=== PATIENT | female | born 1970 | race Caucasian/White ===

== ENCOUNTER → 2019-03-15 | Outpatient (CLI) | payer MEDICARE, OTHER ==
[2019-03-16 14:05] LABS: Candida species (DNA Probe) Positive (NEGATIVE); G. vaginalis (DNA Probe) Positive (NEGATIVE); T. vaginalis (DNA Probe) Negative (NEGATIVE)
== END ==
LOC: LAB SHORT 15:40 → LAB 15:40
PROVIDERS: Nurse Practitioner Family
DX: N76.0 Acute vaginitis (principal)
CPT/HCPCS: 87070; 87205; 87480; 87510; 87660

== ENCOUNTER 2020-01-20 06:19 | Day surgery (SDC) | payer MEDICARE ==
[~2020-01-20] VITALS: Ht 170.2 cm; Wt 117.6 kg
--- NOTE | 2020-01-20 07:17 | NUR ---
01/20/20 0717 Elizabeth Amos 2 IV ATTEMPTS BY [facility], 1ST IN L FOREARM INFILTRATED, 2ND IN L FOREARM WAS SUCCESSFUL
[2020-01-20] MEDS ORDERED: TOPI100 PO (07:18)
[2020-01-20] MEDS ORDERED: VENL75ER PO (07:18)
[2020-01-20] MEDS ORDERED: SUMA25 PO (07:19)
--- NOTE | 2020-01-20 07:59 | NUR ---
01/20/20 0759 Jimmie Young 1 MG EPI ADDED TO THE FIRST LR BAG FOR IRRIGATION.
--- NOTE | 2020-01-20 09:13 | NUR ---
01/20/20 0912 Tiffanie Santos V PT RESTING IN RECLINER, EYES CLOSED, OPERATIVE LIMB ICED AND ELEVATED, S/O AT CHAIR-SIDE. PT REPORTS PAIN FOR WHICH SHE HAS BEEN MEDICATED FOR.
== END 2020-01-20 11:15 | disposition home or self-care (01) ==
LOC: ORSCSDS 06:19
PROVIDERS: Orthopaedic Surgery
PROC: 0SBD4ZZ Excision of Left Knee Joint, Percutaneous Endoscopic Approach (ICD-10-PCS; principal; 2020-01-20 07:30)
DX: S83.282A Other tear of lateral meniscus, current injury, left knee, initial encounter (principal); E11.9 Type 2 diabetes mellitus without complications; E66.01 Morbid (severe) obesity due to excess calories; Z68.41 Body mass index [BMI] 40.0-44.9, adult; Z79.899 Other long term (current) drug therapy; Z79.82 Long term (current) use of aspirin
CPT/HCPCS: 82947; J0171; J0690; J1100; J2250; J2405; J2704; J3010; J7120

== ENCOUNTER → 2020-04-23 | Outpatient (CLI) | payer MEDICARE ==
[~2020-04-23] MED LIST: SUMA25 PO; TOPI100 PO; VENL75ER PO
== END | disposition home or self-care (01) ==
LOC: LAB 13:20 → LAB SHORT 13:20
DX: R35.0 Frequency of micturition (principal)
CPT/HCPCS: 87086

== ENCOUNTER → 2020-06-15 | Outpatient (CLI) | payer MEDICARE ==
[~2020-06-15] MED LIST changes: +Colace250 MG PO; +HYDR1TAB94 PO; +HYDROCODONE-AC1 EAC7 PO; +IMITREX100 MG; +METFORMIN HCL500 M3 PO; +TOPI100; +VENLAFAXINE HC225 MG
[2020-06-15 12:32] LABS: Source, Urine Clean Catch
[2020-06-15 13:35] LABS: Appearance, Urine Clear (Clear); Bilirubin, Urine Neg (Neg); Blood, Urine 5+ (Neg); Color, Urine Yellow (P-Yellow); Glucose Qualitative, Urine Neg (Neg); Ketones, Urine Neg (Neg); Leukocyte Esterase, Urine Neg (Neg); Nitrite, Urine Neg (Neg); Protein, Urine Neg (Neg); Specific Gravity, Urine 1.025 (1.003-1.022); Urobilinogen, Urine NORM (Normal)
[2020-06-15 14:10] LABS: Amorphous Light (0-Heavy); Bacteria Few /hpf; Mucus Light (0-Heavy); Squamous Epithelial Cells Few /hpf (Few); White Blood Cells, Urine 0-2 /hpf (0-5)
[2020-06-15 14:11] LABS: Calcium Oxalate Crystals Mod /hpf
== END | disposition home or self-care (01) ==
LOC: OLS 12:31 → LAB SHORT 12:31
PROVIDERS: Nurse Practitioner Family
DX: R10.9 Unspecified abdominal pain (principal); R30.0 Dysuria
CPT/HCPCS: 81001

== ENCOUNTER 2020-06-17 04:20 | Emergency (ER) | payer MEDICARE ==
[~2020-06-17] VITALS: Ht 172.7 cm; Wt 107.0 kg
[~2020-06-17 04:20] MED LIST changes: -Colace250 MG PO; -HYDR1TAB94 PO; -HYDROCODONE-AC1 EAC7 PO; -IMITREX100 MG; -METFORMIN HCL500 M3 PO; -TOPI100; -VENLAFAXINE HC225 MG
[2020-06-17] MEDS ORDERED: METFORMIN HCL500 M3 PO (04:35)
[2020-06-17] MEDS ORDERED: TOPI100 (04:35)
[2020-06-17] MEDS ORDERED: VENLAFAXINE HC225 MG (04:35)
[2020-06-17] MEDS ORDERED: HYDROCODONE-AC1 EAC7 PO (04:35)
[2020-06-17] MEDS ORDERED: IMITREX100 MG (04:35)
[2020-06-17 04:58] LABS: Source, Urine Clean Catch
[2020-06-17 05:01] LABS: Appearance, Urine Clear (Clear); Bilirubin, Urine Neg (Neg); Blood, Urine 5+ (Neg); Color, Urine Yellow (P-Yellow); Glucose Qualitative, Urine Neg (Neg); Ketones, Urine 1+ (Neg); Leukocyte Esterase, Urine 1+ (Neg); Nitrite, Urine Neg (Neg); Protein, Urine 2+ (Neg); Urobilinogen, Urine NORM (Normal)
[2020-06-17 05:10] LABS: White Blood Cells, Urine 0-2 /hpf (0-5)
[2020-06-17 05:11] LABS: Bacteria Many /hpf; Calcium Oxalate Crystals Many /hpf; Squamous Epithelial Cells Mod /hpf (Few)
[2020-06-17 05:19] LABS: Alanine Aminotransfer (ALT/SGP 21 U/L (12-78); Albumin, Blood 3.9 g/dL (3.4-5.0); Alk Phos 88 U/L (50-136); Anion Gap 7 mmol/L (6-16); Aspartate Aminotrans (AST/SGOT 24 U/L (12-37); Bilirubin, Total 0.3 mg/dL (0.1-1.0); Blood Urea Nitrogen 10 mg/dL (8-24); Bun/Creatinine Ratio 12.5 (12.0-20.0); CO2, Blood 24 mmol/L (21-32); Calcium, Blood 9.3 mg/dL (8.5-10.1); Chloride, Blood 110 mmol/L (98-108); Globulin, Blood 3.8 g/dL (2.2-4.0); Glomerular Filtration Rate >60 (60-); Glucose, Blood 187 mg/dL (70-99); Potassium, Blood 4.3 mmol/L (3.5-5.5); Sodium, Blood 141 mmol/L (136-145); Total Protein, Blood 7.7 g/dL (6.4-8.2)
[2020-06-17 05:48] LABS: BASOPHILS ABSOLUTE AUTO 0.03 K/mm3 (0.00-0.23); BASOPHILS PERCENT AUTO 0 % (0-2); EOSINOPHILS ABSOLUTE AUTO 0.08 K/mm3 (0.00-0.68); EOSINOPHILS PERCENT AUTO 1 % (0-6); Hematocrit 37.1 % (33.0-51.0); Hemoglobin 12.1 g/dL (11.5-16.0); IMMATURE GRAN ABSOLUTE AUTO 0.02 K/mm3 (0.00-0.10); IMMATURE GRAN PERCENT AUTO 0 % (0-1); LYMPHOCYTES ABSOLUTE AUTO 1.14 K/mm3 (0.84-5.20); LYMPHOCYTES PERCENT AUTO 16 % (21-46); MONOCYTES PERCENT AUTO 4 % (4-13); Mean Corpuscular HGB 28.8 pg (26.0-34.0); Mean Corpuscular HGB Conc 32.6 g/dL (31.5-36.5); Mean Corpuscular Volume 88 fL (80-100); Mean Platelet Volume 10.1 fL (9.1-12.4); NEUTROPHILS ABSOLUTE AUTO 5.73 K/mm3 (1.96-9.15); NEUTROPHILS PERCENT AUTO 79 % (41-73); Platelet Count 191 K/mm3 (150-400); RDW Coefficient Variation 13.7 % (11.7-14.2); RDW Standard Deviation 44.2 fL (35.1-46.3)
[2020-06-17 06:13] LABS: Source, Urine Catheter
[2020-06-17 06:32] LABS: Appearance, Urine Clear (Clear); Bilirubin, Urine Neg (Neg); Blood, Urine 5+ (Neg); Color, Urine Yellow (P-Yellow); Glucose Qualitative, Urine Neg (Neg); Leukocyte Esterase, Urine Neg (Neg); Nitrite, Urine Neg (Neg); Protein, Urine 2+ (Neg); Urobilinogen, Urine NORM (Normal)
[2020-06-17 06:33] LABS: Ketones, Urine 1+ (Neg)
[2020-06-17 06:41] LABS: Bacteria Not Seen /hpf; Squamous Epithelial Cells Few /hpf (Few); White Blood Cells, Urine Not Seen /hpf (0-5)
[2020-06-17] MEDS ORDERED: HYDR1TAB94 PO (07:05)
[2020-06-17] MEDS ORDERED: Colace250 MG PO (07:05)
== END 2020-06-17 07:16 | disposition home or self-care (01) ==
LOC: ER 04:20
PROVIDERS: Emergency Medicine
DX: N13.2 Hydronephrosis with renal and ureteral calculous obstruction (principal); Z88.8 Allergy status to other drugs, medicaments and biological substances; Z79.84 Long term (current) use of oral hypoglycemic drugs; Z79.899 Other long term (current) drug therapy; Z87.442 Personal history of urinary calculi
CPT/HCPCS: 36415; 74176; 80053; 81001; 85025; 87086; 96374-59; 96375-59; 99284-25; J1885; J2270; J2405; P9612

== ENCOUNTER 2021-01-14 16:51 | Emergency (ER) | payer MEDICARE ==
[~2021-01-14] VITALS: Ht 175.3 cm; Wt 85.7 kg
[~2021-01-14 16:51] MED LIST changes: +Colace250 MG PO; +HYDR1TAB94 PO; +HYDROCODONE-AC1 EAC7 PO; +IMITREX100 MG; +METFORMIN HCL500 M3 PO; +TOPI100; +VENLAFAXINE HC225 MG
[2021-01-14] MEDS ORDERED: TRAZ50 PO (17:13)
[2021-01-14 22:11] LABS: BASOPHILS ABSOLUTE AUTO 0.02 K/mm3 (0.00-0.23); BASOPHILS PERCENT AUTO 0 % (0-2); EOSINOPHILS ABSOLUTE AUTO 0.04 K/mm3 (0.00-0.68); EOSINOPHILS PERCENT AUTO 1 % (0-6); Hemoglobin 13.8 g/dL (11.5-16.0); IMMATURE GRAN ABSOLUTE AUTO 0.03 K/mm3 (0.00-0.10); IMMATURE GRAN PERCENT AUTO 0 % (0-1); LYMPHOCYTES ABSOLUTE AUTO 1.81 K/mm3 (0.84-5.20); LYMPHOCYTES PERCENT AUTO 22 % (21-46); MONOCYTES PERCENT AUTO 6 % (4-13); Mean Corpuscular HGB 29.5 pg (26.0-34.0); Mean Corpuscular HGB Conc 32.9 g/dL (31.5-36.5); Mean Corpuscular Volume 90 fL (80-100); Mean Platelet Volume 10.1 fL (9.1-12.4); NEUTROPHILS ABSOLUTE AUTO 6.02 K/mm3 (1.96-9.15); NEUTROPHILS PERCENT AUTO 72 % (41-73); Platelet Count 181 K/mm3 (150-400); RDW Coefficient Variation 12.3 % (11.7-14.2); RDW Standard Deviation 40.2 fL (35.1-46.3); Red Blood Cell Count 4.68 M/mm3 (3.80-5.20); White Blood Cell Count 8.42 K/mm3 (4.00-11.30)
[2021-01-14 22:31] LABS: Alanine Aminotransfer (ALT/SGP 34 U/L (12-78); Albumin, Blood 3.8 g/dL (3.4-5.0); Alk Phos 59 U/L (50-136); Anion Gap 6 mmol/L (6-16); Aspartate Aminotrans (AST/SGOT 28 U/L (12-37); Bilirubin, Total 0.4 mg/dL (0.1-1.0); Blood Urea Nitrogen 12 mg/dL (8-24); Bun/Creatinine Ratio 16.1 (12.0-20.0); CO2, Blood 21 mmol/L (21-32); Calcium, Blood 8.6 mg/dL (8.5-10.1); Chloride, Blood 109 mmol/L (98-108); Creatinine, Blood 0.75 mg/dL (0.40-1.00); Glomerular Filtration Rate >60 (60-); Glucose, Blood 110 mg/dL (70-99); Potassium, Blood 3.8 mmol/L (3.5-5.5); Sodium, Blood 136 mmol/L (136-145); Total Protein, Blood 7.8 g/dL (6.4-8.2)
== END 2021-01-14 23:00 | disposition home or self-care (01) ==
LOC: ER 16:51
PROVIDERS: Physician Assistant
DX: G43.809 Other migraine, not intractable, without status migrainosus (principal); E11.9 Type 2 diabetes mellitus without complications; Z88.8 Allergy status to other drugs, medicaments and biological substances; Z79.899 Other long term (current) drug therapy
CPT/HCPCS: 70450; 80053; 85025; 93005; 93010; 96361; 96374; 96375; 99285-25; A9270; J0780; J1200; J7030

== ENCOUNTER 2021-05-26 15:10 | Emergency (ER) | payer MEDICARE ==
[~2021-05-26] VITALS: Ht 172.7 cm; Wt 110.2 kg
[~2021-05-26 15:10] MED LIST changes: +TRAZ50 PO
[2021-05-26] MEDS ORDERED: METF500 PO (16:43)
[2021-05-26] MEDS ORDERED: Percocet 10-321 EACH PO (17:22)
== END 2021-05-26 17:41 | disposition home or self-care (01) ==
LOC: ER 15:10
DX: S43.401A Unspecified sprain of right shoulder joint, initial encounter (principal); S80.02XA Contusion of left knee, initial encounter; E11.9 Type 2 diabetes mellitus without complications; G43.909 Migraine, unspecified, not intractable, without status migrainosus; Z88.8 Allergy status to other drugs, medicaments and biological substances; Z79.899 Other long term (current) drug therapy; Z96.652 Presence of left artificial knee joint; W10.9XXA Fall (on) (from) unspecified stairs and steps, initial encounter
CPT/HCPCS: 73030; 73562-LT; 99283-25; A9270

== ENCOUNTER → 2022-02-11 | Outpatient (CLI) | payer MEDICARE ==
[~2022-02-11] MED LIST changes: +METF500 PO; +Percocet 10-321 EACH PO
[2022-02-15 13:10] LABS: HPV 16 Negative (Negative); HPV 18 Negative (Negative); HPV OTHER HR TYPES Negative (Negative)
== END | disposition home or self-care (01) ==
LOC: LAB 17:16 → LAB SHORT 17:16
PROVIDERS: Nurse Practitioner Family
DX: Z12.4 Encounter for screening for malignant neoplasm of cervix (principal)
CPT/HCPCS: 87624; G0123

== ENCOUNTER → 2022-05-02 | Outpatient (CLI) | payer MEDICARE ==
[2022-05-05 18:37] LABS: Adenovirus F 40/41 Not Detected (NOT DETECT); Astrovirus Not Detected (NOT DETECT); Campylobacter Sp Not Detected (NOT DETECT); Cryptosporidium Not Detected (NOT DETECT); Cyclospora Cayetanensis Not Detected (NOT DETECT); E. Coli O157 Not Detected (NOT DETECT); Entamoeba Histolytica Not Detected (NOT DETECT); Enteroaggregative E. coli-EAEC Not Detected (NOT DETECT); Enteropathogenic E. coli-EPEC Not Detected (NOT DETECT); Enterotoxigenic E. coli-ETEC Not Detected (NOT DETECT); Giardia Lamblia Not Detected (NOT DETECT); Norovirus GI/GII Not Detected (NOT DETECT); Plesiomonas Shigelloides Not Detected (NOT DETECT); Rotavirus A Not Detected (NOT DETECT); Salmonella Sp Not Detected (NOT DETECT); Sapovirus Not Detected (NOT DETECT); Shiga Toxin-prod E. coli-STEC Not Detected (NOT DETECT); Shigella/Enteroin E. coli-EIEC Not Detected (NOT DETECT); Vibrio Cholerae Not Detected (NOT DETECT); Vibrio Sp Not Detected (NOT DETECT); Yersinia Enterocolitica Not Detected (NOT DETECT)
== END | disposition home or self-care (01) ==
LOC: LAB 18:00 → LAB SHORT 18:00
PROVIDERS: Physician Assistant Medical
DX: K52.9 Noninfective gastroenteritis and colitis, unspecified (principal)
CPT/HCPCS: 82653; 83993; 87507

== ENCOUNTER 2022-05-06 09:29 | Day surgery (SDC) | payer MEDICARE ==
[~2022-05-06] VITALS: Ht 172.7 cm; Wt 110.4 kg
--- NOTE | 2022-05-06 10:45 | NUR ---
05/06/22 [place]5 Yesenia Plasencia MONITOR INTACT WITH CONTINUOUS PULSE OXIMETRY AND INTERMITTENT BP.
--- NOTE | 2022-05-06 11:45 | NUR ---
Discharge instructions reviewed with patient. Patient verbalizes understanding. Copy given to patient to take home. Discharged via wheelchair to private car for ride home.
== END 2022-05-06 11:55 | disposition home or self-care (01) ==
LOC: ORSCMMR 09:29 → ORD 11:00 → ORSCMMR 11:55 → ORD 12:00
PROVIDERS: Internal Medicine Gastroenterology
PROC: 0DBL8ZX Excision of Transverse Colon, Via Natural or Artificial Opening Endoscopic, Diagnostic (ICD-10-PCS; principal; 2022-05-06 11:00)
DX: R19.7 Diarrhea, unspecified (principal); Z83.71 Family history of colonic polyps; G47.33 Obstructive sleep apnea (adult) (pediatric); K57.50 Diverticulosis of both small and large intestine without perforation or abscess without bleeding; E11.9 Type 2 diabetes mellitus without complications; K64.8 Other hemorrhoids; Z87.891 Personal history of nicotine dependence; Z79.899 Other long term (current) drug therapy
CPT/HCPCS: 82947; 88305; J2250; J2405; J2704; J7120

== ENCOUNTER → 2022-08-01 | Outpatient (CLI) | payer MEDICARE ==
[2022-08-03 10:33] LABS: Candida species (DNA Probe) Positive (NEGATIVE); G. vaginalis (DNA Probe) Positive (NEGATIVE); T. vaginalis (DNA Probe) Negative (NEGATIVE)
== END | disposition home or self-care (01) ==
LOC: LAB SHORT 15:00
PROVIDERS: Nurse Practitioner
DX: N89.8 Other specified noninflammatory disorders of vagina (principal)
CPT/HCPCS: 87480; 87510; 87660

== ENCOUNTER 2023-04-05 20:16 | Emergency (ER) | payer MEDICARE ==
[~2023-04-05] VITALS: Ht 172.7 cm; Wt 100.7 kg
[2023-04-05] MEDS ORDERED: PROG100 PO (21:12)
[2023-04-05] MEDS ORDERED: ATOR40TA PO (21:12)
[2023-04-05] MEDS ORDERED: HYDHCL25 (21:13)
[2023-04-05] MEDS ORDERED: OZEMPIC0.25 MG/02 SQ (21:14)
[2023-04-05] MEDS ORDERED: IRBESARTAN75 M3 PO (21:15)
[2023-04-05] MEDS ORDERED: VENL150ER PO (21:16)
[2023-04-05 21:23] LABS: BASOPHILS ABSOLUTE AUTO 0.04 K/mm3 (0.00-0.23); BASOPHILS PERCENT AUTO 0 % (0-2); EOSINOPHILS ABSOLUTE AUTO 0.16 K/mm3 (0.00-0.68); EOSINOPHILS PERCENT AUTO 2 % (0-6); Hematocrit 40.5 % (33.0-51.0); Hemoglobin 14.3 g/dL (11.5-16.0); IMMATURE GRAN ABSOLUTE AUTO 0.04 K/mm3 (0.00-0.10); IMMATURE GRAN PERCENT AUTO 0 % (0-1); LYMPHOCYTES ABSOLUTE AUTO 1.44 K/mm3 (0.84-5.20); LYMPHOCYTES PERCENT AUTO 16 % (21-46); MONOCYTES ABSOLUTE AUTO 0.32 K/mm3 (0.16-1.47); MONOCYTES PERCENT AUTO 4 % (4-13); Mean Corpuscular HGB 29.5 pg (26.0-34.0); Mean Corpuscular HGB Conc 35.3 g/dL (31.5-36.5); Mean Corpuscular Volume 84 fL (80-100); NEUTROPHILS ABSOLUTE AUTO 7.08 K/mm3 (1.96-9.15); NEUTROPHILS PERCENT AUTO 78 % (41-73); RDW Coefficient Variation 12.8 % (11.7-14.2); RDW Standard Deviation 38.7 fL (35.1-46.3); Red Blood Cell Count 4.85 M/mm3 (3.80-5.20); White Blood Cell Count 9.08 K/mm3 (4.00-11.30)
[2023-04-05 21:24] LABS: Mean Platelet Volume 10.3 fL (9.1-12.4); Platelet Count 134 K/mm3 (150-400)
[2023-04-05 21:33] LABS: Bilirubin, Total 0.5 mg/dL (0.1-1.0); Bun/Creatinine Ratio 13.1 (12.0-20.0); Calcium, Blood 9.2 mg/dL (8.5-10.1); Creatinine, Blood 0.76 mg/dL (0.40-1.00); Potassium, Blood 4.5 mmol/L (3.5-5.5)
[2023-04-06 00:08] VITALS: BP 137/84
[2023-04-06] MEDS ORDERED: FAMO20 PO (00:43)
[2023-04-06] MEDS ORDERED: ALMACONE SUSPE355 ML PO (00:43)
== END 2023-04-06 01:00 | disposition home or self-care (01) ==
LOC: ER 20:16
PROVIDERS: Emergency Medicine
DX: K21.9 Gastro-esophageal reflux disease without esophagitis (principal); Z88.8 Allergy status to other drugs, medicaments and biological substances; Z79.899 Other long term (current) drug therapy; Z79.84 Long term (current) use of oral hypoglycemic drugs; G43.909 Migraine, unspecified, not intractable, without status migrainosus; E11.9 Type 2 diabetes mellitus without complications
CPT/HCPCS: 71046; 80053; 84484; 85025; 93005; 93010; 96374; 99284-25; A9270

== ENCOUNTER 2023-04-12 07:45 | Day surgery (SDC) | payer MEDICARE ==
[2023-04-12] VITALS (13 sets, daily range): BP systolic 98–123; BP diastolic 59–79
[~2023-04-12] VITALS: Ht 172.7 cm; Wt 106.8 kg
[~2023-04-12 07:45] MED LIST changes: +ALMACONE SUSPE355 ML PO; +ATOR40TA PO; +FAMO20 PO; +HYDHCL25; +IRBESARTAN75 M3 PO; +OZEMPIC0.25 MG/02 SQ; +PROG100 PO; +VENL150ER PO
[2023-04-12] MEDS ORDERED: GLIP2.5ER PO (08:19)
--- NOTE | 2023-04-12 09:08 | NUR ---
Ambulatory in Day Surgery Patient confirms NPO status and agrees with scheduled surgery. Pre-Op teaching done. Pt verbalizes understanding. History, Chart, Medications and Allergies reviewed before start of procedure.Patient States Post-Procedure ride home has been arranged.
--- NOTE | 2023-04-12 11:55 | NUR ---
REPORT RECEIVED FROM HUMAIRA PITTS. VSS. PT ABLE TO REPOSITION SELF IN BED. PT IS SLEEPY BUT RESPONDS TO CONVERSATION AND MAKES NEEDS KNWON. PT REQUESTED PO FOOD AND FLUIDS AND TOLERATED THEM WELL. PT HAS 5 DRESSINGS ON ABDOMEN THAT ARE C/D/I WITHOUT DRAINAGE, REDNESS, OR SWELLING. PT DENIES NAUSEA. PT REPORTS 9/10 ACHING PAIN TO ABDOMEN.
--- NOTE | 2023-04-12 12:37 | NUR ---
PT LESS SLEEPY. PT REPORTS "PAIN BETTER". Patient up to Ambulate independently. Gait steady. Discharge instructions reviewed with patient. Patient verbalizes understanding. Copy given to patient to take home. Discharged via wheelchair to private car for ride home.
== END 2023-04-12 12:36 | disposition home or self-care (01) ==
LOC: ORSCMMR 07:45 → ORD 09:00 → ORSCMMR 09:00
PROVIDERS: Surgery
PROC: 0JB80ZX Excision of Abdomen Subcutaneous Tissue and Fascia, Open Approach, Diagnostic (ICD-10-PCS; principal; 2023-04-12 09:00)
DX: D17.1 Benign lipomatous neoplasm of skin and subcutaneous tissue of trunk (principal); I10 Essential (primary) hypertension; E11.9 Type 2 diabetes mellitus without complications; E66.9 Obesity, unspecified; Z68.35 Body mass index [BMI] 35.0-35.9, adult; Z79.84 Long term (current) use of oral hypoglycemic drugs; Z79.899 Other long term (current) drug therapy
CPT/HCPCS: 82947; 88304; A9270; J0330; J1100; J1885; J2371; J2405; J2704; J3010; J7120

== ENCOUNTER → 2023-08-02 | Outpatient (CLI) | payer MEDICARE ==
[~2023-08-02] MED LIST changes: +GLIP2.5ER PO
== END ==
LOC: LAB 12:00 → LAB SHORT 12:00
DX: E11.9 Type 2 diabetes mellitus without complications (principal)
CPT/HCPCS: 82043